=== PATIENT | female | born 1955 | race Caucasian/White ===

== ENCOUNTER 2016-06-30 12:39 | Outpatient (CLI) | payer MEDICAID | END 2016-06-30 12:40 | disposition home or self-care (01) | DX: E03.9 Hypothyroidism, unspecified (principal); Z86.2 Personal history of diseases of the blood and blood-forming organs and certain disorders involving the immune mechanism ==

== ENCOUNTER 2016-12-09 11:18 | Outpatient (CLI) | payer MEDICAID ==
--- NOTE | 2016-12-09 19:37 | XRAY Report ---
TWO VIEW CHEST: 12/09/2016 CLINICAL INDICATION: Cough. COMPARISON: 04/18/2016 Frontal and lateral views of the chest demonstrate a normal cardiac silhouette. The lungs remain skyler ar. No effusion or pneumothorax is present. IMPRESSION: NORMAL CHEST, UNCHANGED. JOB #: [id number] EXT JOB #:[id number]
== END 2016-12-09 11:19 | disposition home or self-care (01) ==
LOC: DI.S 11:18
PROVIDERS: ATTEND Nurse Practitioner Family
DX: R05 Cough (principal)
CPT/HCPCS: 71020

== ENCOUNTER 2017-03-30 12:01 | Outpatient (CLI) | payer MEDICAID ==
[2017-03-30 18:46] LABS: BASOPHILS # (AUTO) 0.1 10^3/uL (0.0-0.1); BASOPHILS % (AUTO) 1.7 %; EOSINOPHILS # (AUTO) 0.3 10^3/uL (0.0-0.7); EOSINOPHILS % (AUTO) 3.8 %; HCT - HEMATOCRIT 40.9 % (37.0-47.0); HGB - HEMOGLOBIN 13.3 g/dL (12.0-16.0); LYMPHOCYTES # (AUTO) 1.5 10^3/uL (1.5-3.5); LYMPHOCYTES % (AUTO) 19.3 %; MEAN CORPUSCULAR HEMOGLOBIN 27.4 pg (27.0-31.0); MEAN CORPUSCULAR HGB CONC 32.6 g/dL (32.0-36.0); MEAN CORPUSCULAR VOLUME 84.2 fL (81.0-99.0); MEAN PLATELET VOLUME 7.6 fL (7.9-10.8); MONOCYTES # (AUTO) 0.4 10^3/uL (0.0-1.0); MONOCYTES % (AUTO) 5.4 %; NEUTROPHILS # (AUTO) 5.5 10^3/uL (1.5-6.6); NEUTROPHILS % (AUTO) 69.8 %; NUCLEATED RED BLOOD CELLS AUTO 0.1 /100WBC; RED BLOOD COUNT 4.86 10^6/uL (4.20-5.40); RED CELL DISTRIBUTION WIDTH 14.7 % (12.0-15.0); UNCORRECTED WHITE BLOOD COUNT 7.8 x10^3/uL; WHITE BLOOD COUNT 7.8 x10^3/uL (4.8-10.8)
[2017-03-30 19:25] LABS: ALBUMIN/GLOBULIN RATIO 1.5 (1.0-2.2); BILIRUBIN,TOTAL 0.6 mg/dL (0.2-1.0); BUN - BLOOD UREA NITROGEN 17 mg/dL (6-20); CALCIUM 9.1 mg/dL (8.5-10.3); CARBON DIOXIDE - CO2 28 mmol/L (21-32); CHLORIDE 102 mmol/L (101-111); CHOL/HDL RATIO 3.5 (<4.4); CHOLESTEROL 165 mg/dL; CREATININE 0.7 mg/dL (0.4-1.0); GFR - MDRD 85 (>89); GLUCOSE 84 mg/dL (70-100); HDL CHOLESTEROL 47 mg/dL; LDL/HDL RATIO 2.1 (<4.4); POTASSIUM 3.5 mmol/L (3.5-5.0); SODIUM 138 mmol/L (135-145); TOTAL PROTEIN 7.2 g/dL (6.7-8.2); TRIGLYCERIDES 85 mg/dL; VLDL CHOLESTEROL 17 mg/dL
== END 2017-03-30 12:02 | disposition home or self-care (01) ==
LOC: LAB.S 12:01
PROVIDERS: ATTEND Nurse Practitioner Family
DX: I10 Essential (primary) hypertension (principal); Z13.220 Encounter for screening for lipoid disorders; Z01.84 Encounter for antibody response examination
CPT/HCPCS: 36415; 80053; 80061; 84443; 85025; 86803

== ENCOUNTER 2017-04-06 11:05 | Outpatient (CLI) | payer MEDICAID ==
--- NOTE | 2017-04-10 14:21 | XRAY Report ---
DATE OF SERVICE: 04/06/2017 TWO-VIEW RIGHT FOOT: 04/06/2017 CLINICAL INDICATION: Pain at right fourth metatarsophalangeal joint. FINDINGS: Frontal and lateral views of the right foot demonstrate no evidence of fracture or disloca tion. The joint spaces are unremarkable. No radiopaque foreign body is seen in the soft tissues. Plantar and posterior calcaneal spurring is incidentally noted. IMPRESSION: CALCANEAL SPURRING. NO EVIDENT ETIOLOGY FOR THE PATIENT'S PAIN AT THE FOURTH METATARSOP HALANGEAL JOINT. TD: 04/06/2017 16:51
== END 2017-04-06 11:06 | disposition home or self-care (01) ==
LOC: DI.S 11:05
PROVIDERS: ATTEND Family Medicine
DX: M77.41 Metatarsalgia, right foot (principal); M77.31 Calcaneal spur, right foot

== ENCOUNTER 2017-05-14 14:33 | Outpatient (CLI) | payer MEDICAID ==
--- NOTE | 2017-05-15 10:33 | XRAY Report ---
DATE OF SERVICE: 05/14/2017 THREE VIEW LEFT FOOT: 05/14/2017 CLINICAL INDICATION: Pain. FINDINGS: AP, lateral, and oblique views of the left foot demonstrate no evidence of fracture or dislocation. A small plantar calcaneal spur is present. No radiopaque foreign body is seen in the soft tissues. IMPRESSION: PLANTAR CALCANEAL SPURRING. TD: 05/15/2017 11:32
== END 2017-05-14 14:34 | disposition home or self-care (01) ==
LOC: DI.S 14:33
PROVIDERS: ATTEND Nurse Practitioner Family
DX: M77.32 Calcaneal spur, left foot (principal)

== ENCOUNTER 2017-05-28 16:18 | Outpatient (CLI) | payer MEDICAID ==
--- NOTE | 2017-05-29 11:56 | XRAY Report ---
THREE VIEW LEFT ANKLE: 05/28/2017 CLINICAL INDICATION: Injury. FINDINGS: AP, lateral, oblique views of the left ankle demonstrate no evidence of fracture or dislocation. Plantar and posterior calcaneal spurring is noted. No effusion is seen. No radiopaque foreign body is seen in the soft tissues. IMPRESSION: NO EVIDENCE OF FRACTURE. TD: 05/29/2017 11:55
== END 2017-05-28 16:19 | disposition home or self-care (01) ==
LOC: DI 16:18
PROVIDERS: ATTEND Podiatrist
DX: S99.912A Unspecified injury of left ankle, initial encounter (principal)

== ENCOUNTER 2017-05-30 12:17 | Outpatient (CLI) | payer MEDICAID ==
--- NOTE | 2017-05-30 20:20 | MRI Report ---
EXAM: RIGHT MIDFOOT MRI WITHOUT CONTRAST EXAM DATE: 05/30/2017 01:15 PM. CLINICAL HISTORY: Pain in the right forefoot near the fourth metatarsal for one year. COMPARISON: 04/06/2017 radiograph. TECHNIQUE: Multiplanar, multisequence T1-weighted and fluid-sensitive sequences of the midfoot withou t contrast. Other: None. FINDINGS: Bones: No fractures or subluxations. Mild reactive periarticular marrow edema is in the distal cuboid . No bone lesions. Articular Cartilage: Unremarkable. Ligaments: The visualized intertarsal, intermetatarsal, and tarsometatarsal ligaments are intact. Thi s includes the Lisfranc ligament. The visualized collateral ligaments are intact. Tendons: The flexor and extensor tendons are unremarkable. Musculature: No edema or fatty atrophy. Other: No effusions. The visualized portion of the tarsal tunnel is unremarkable. There is mild inter metatarsal bursitis in the third interspace. The subcutaneous tissues are unremarkable. IMPRESSION: Mild intermetatarsal bursitis between the distal third and fourth metatarsals near the site of pain. [facility] MUSCULOSKELETAL RADIOLOGY SECTION Referring Provider Line: [phone] SITE ID: [id number]
== END 2017-05-30 12:18 | disposition home or self-care (01) ==
LOC: DI 12:17
PROVIDERS: ATTEND Podiatrist
DX: M71.571 Other bursitis, not elsewhere classified, right ankle and foot (principal)

== ENCOUNTER 2017-08-13 11:25 | Outpatient (CLI) | payer MEDICAID ==
[2017-08-13 18:19] LABS: THYROID STIMULATING HORMONE 1.38 uIU/mL (0.34-5.60)
[2017-08-13 18:21] LABS: FREE T4 (FREE THYROXINE) 0.73 ng/dL (0.58-1.64)
== END 2017-08-13 11:26 | disposition home or self-care (01) ==
LOC: LAB.F 11:25
PROVIDERS: ATTEND Nurse Practitioner Family
DX: E03.9 Hypothyroidism, unspecified (principal)
CPT/HCPCS: 36415; 84439; 84443

== ENCOUNTER 2017-11-06 15:05 | Outpatient (CLI) | payer MEDICAID ==
--- NOTE | 2017-11-06 16:09 | XRAY Report ---
Procedure Date: 11/06/2017 Accession Number: [id number] / [id number] Procedure: XRS - Shoulder 2 View RT CPT Code: FULL RESULT: EXAM: Shoulder 2 View RT DATE: 11/06/2017 3:21 PM CLINICAL HISTORY: PAIN IN RIGHT SHOULDER COMPARISON: None. TECHNIQUE: 3 views. FINDINGS: This three-view series is limited by suboptimal positioning. Within these limitations no dislocation is identified. There is no fracture. The acromioclavicular and coracoclavicular intervals are within normal limits. Visualized soft tissues and lung parenchyma are unremarkable. IMPRESSION: Limited examination with no fracture or overt dislocation. If there is ongoing clinical concern for dislocation, repeat shoulder radiographs with ratio/true AP view and axial view could be obtained. [facility]
== END 2017-11-06 15:06 | disposition home or self-care (01) ==
LOC: DI.S 15:05
PROVIDERS: ATTEND Nurse Practitioner Family
DX: M25.511 Pain in right shoulder (principal)

== ENCOUNTER 2018-01-01 16:34 | Outpatient (CLI) | payer MEDICAID ==
[2018-01-01 17:34] LABS: THYROID STIMULATING HORMONE 0.45 uIU/mL (0.34-5.60)
[2018-01-01 17:36] LABS: FREE T4 (FREE THYROXINE) 1.14 ng/dL (0.58-1.64)
== END 2018-01-01 16:35 | disposition home or self-care (01) ==
LOC: LAB 16:34
PROVIDERS: ATTEND Internal Medicine
DX: E03.9 Hypothyroidism, unspecified (principal); R53.82 Chronic fatigue, unspecified; G47.10 Hypersomnia, unspecified; R63.5 Abnormal weight gain; G47.30 Sleep apnea, unspecified
CPT/HCPCS: 36415; 84439; 84443

== ENCOUNTER 2018-06-28 08:00 | Outpatient (CLI) | payer MEDICAID ==
[2018-06-28 17:54] LABS: BASOPHILS # (AUTO) 0.1 10^3/uL (0.0-0.1); EOSINOPHILS # (AUTO) 0.3 10^3/uL (0.0-0.7); EOSINOPHILS % (AUTO) 4.5 %; HGB - HEMOGLOBIN 13.3 g/dL (12.0-16.0); LYMPHOCYTES # (AUTO) 1.5 10^3/uL (1.5-3.5); LYMPHOCYTES % (AUTO) 21.7 %; MEAN CORPUSCULAR HEMOGLOBIN 27.6 pg (27.0-31.0); MEAN CORPUSCULAR HGB CONC 32.5 g/dL (32.0-36.0); MEAN CORPUSCULAR VOLUME 85.1 fL (81.0-99.0); MEAN PLATELET VOLUME 7.5 fL (7.9-10.8); MONOCYTES # (AUTO) 0.4 10^3/uL (0.0-1.0); MONOCYTES % (AUTO) 5.4 %; NEUTROPHILS # (AUTO) 4.5 10^3/uL (1.5-6.6); NEUTROPHILS % (AUTO) 66.4 %; PLT - PLATELET COUNT 416 10^3/uL (130-450); RED BLOOD COUNT 4.81 10^6/uL (4.20-5.40); RED CELL DISTRIBUTION WIDTH 14.8 % (12.0-15.0); WHITE BLOOD COUNT 6.7 x10^3/uL (4.8-10.8)
[2018-06-28 18:40] LABS: ALBUMIN/GLOBULIN RATIO 1.3 (1.0-2.2); ALKALINE PHOSPHATASE 46 IU/L (42-121); ALT ALANINE AMINOTRANSFERASE 18 IU/L (10-60); AST ASPARTATE AMINOTRANSFERASE 16 IU/L (10-42); BILIRUBIN,TOTAL 0.9 mg/dL (0.2-1.0); BUN - BLOOD UREA NITROGEN 20 mg/dL (6-20); CALCIUM 9.5 mg/dL (8.5-10.3); CARBON DIOXIDE - CO2 32 mmol/L (21-32); CHLORIDE 100 mmol/L (101-111); CHOL/HDL RATIO 3.3 (<4.4); CHOLESTEROL 159 mg/dL; CREATININE 0.8 mg/dL (0.4-1.0); GFR - MDRD 73 (>89); GLUCOSE 98 mg/dL (70-100); HDL CHOLESTEROL 48 mg/dL; LDL CHOLESTEROL,CALCULATED 96 mg/dL; SODIUM 140 mmol/L (135-145); TOTAL PROTEIN 7.1 g/dL (6.7-8.2); VLDL CHOLESTEROL 15 mg/dL
== END 2018-06-28 23:59 | disposition home or self-care (01) ==
LOC: LAB.S 08:00
PROVIDERS: ATTEND Nurse Practitioner Family
DX: Z82.3 Family history of stroke (principal); I10 Essential (primary) hypertension; Z13.220 Encounter for screening for lipoid disorders
CPT/HCPCS: 36415; 80053; 80061; 83721; 85025

== ENCOUNTER 2018-11-29 15:20 | Outpatient (CLI) | payer OTHER | END 2018-11-29 23:59 | LOC: LAB 15:20 | DX: Z53.9 Procedure and treatment not carried out, unspecified reason (principal) | CPT/HCPCS: 36415; 81599; 84550 ==

== ENCOUNTER 2018-11-30 15:20 | Outpatient (CLI) | payer MEDICAID, OTHER ==
--- NOTE | 2018-11-30 16:13 | Mammography Report ---
Reason: SCREENING MAMMO Procedure Date: 11/30/2018 Accession Number: [id number] / [id number] Procedure: VON - Screening Mammo w/Davey CPT Code: FULL RESULT: EXAM: Screening Mammo w/Davey DATE: 11/30/2018 4:04 PM CLINICAL HISTORY: Screening encounter. TECHNIQUE: (B) - Bilateral CC, laterally exaggerated CC, MLO views were obtained. COMPARISON: 05/17/2015 through 01/19/2012. PARENCHYMAL PATTERN: (A) - The breast(s) demonstrate(s) scattered fibroglandular densities. FINDINGS: There are no suspicious masses, calcifications, or areas of distortion. IMPRESSION: Negative examination. BI-RADS category 1. RECOMMENDATION: (ANNUAL) - Recommend routine annual screening mammography. BI-RADS CATEGORY: (1) - Negative. STANDARD QUALIFYING STATEMENTS: 1. This examination was not reviewed with the aid of Computer-Aided Detection (CAD). 2. A negative or benign imaging report should not preclude biopsy if clinically suspicious findings are present. 3. Dense breasts may obscure an underlying neoplasm. 4. This examination was reviewed with the aid of 3D breast imaging (tomosynthesis).
== END 2018-11-30 15:21 | disposition home or self-care (01) ==
LOC: DI 15:20
PROVIDERS: ATTEND Registered Nurse
DX: Z12.31 Encounter for screening mammogram for malignant neoplasm of breast (principal); R63.5 Abnormal weight gain; R22.33 Localized swelling, mass and lump, upper limb, bilateral
CPT/HCPCS: 36415; 77063; 77067; 81599; 84550

== ENCOUNTER 2019-05-13 13:27 | Outpatient (CLI) | payer BC, OTHER ==
[2019-05-13 18:42] LABS: ALBUMIN 4.4 g/dL (3.2-5.5); ALBUMIN/GLOBULIN RATIO 1.6 (1.0-2.2); BILIRUBIN,TOTAL 0.5 mg/dL (0.2-1.0); CALCIUM 9.1 mg/dL (8.5-10.3); CREATININE 0.8 mg/dL (0.4-1.0); TOTAL PROTEIN 7.1 g/dL (6.7-8.2)
[2019-05-13 18:58] LABS: TOTAL T3 1.04 ng/mL (0.87-1.78)
--- NOTE | 2019-05-14 08:59 | XRAY Report ---
Reason: PAIN IN RIGHT KNEE Procedure Date: 05/13/2019 Accession Number: [id number] / [id number] Procedure: XRS - Knee 3 View RT CPT Code: Final Report FULL RESULT: EXAM: RIGHT KNEE RADIOGRAPHY EXAM DATE: 05/13/2019 01:46 PM. CLINICAL HISTORY: Pain. COMPARISON: None. TECHNIQUE: 3 views. FINDINGS: Bones: No acute fracture is demonstrated. Joints: No dislocation or subluxation. Mild tricompartmental joint space narrowing is present. There is minimal spurring of the patellofemoral compartment. No significant joint effusion. Soft Tissues: Unremarkable. IMPRESSION: 1. No acute fracture or malalignment. 2. Mild tricompartmental DJD. [facility]
== END 2019-05-13 13:28 | disposition home or self-care (01) ==
LOC: DI.S 13:27
PROVIDERS: ATTEND Registered Nurse
DX: M17.11 Unilateral primary osteoarthritis, right knee (principal); I10 Essential (primary) hypertension; E03.9 Hypothyroidism, unspecified
CPT/HCPCS: 36415; 80053; 84443; 84480

== ENCOUNTER 2019-06-17 07:47 | Outpatient (CLI) | payer BC ==
--- NOTE | 2019-06-17 15:48 | MRI Report ---
Reason: RT KNEE PAIN Procedure Date: 06/17/2019 Accession Number: [id number] / [id number] Procedure: MRI - Knee RT W/O CPT Code: Final Report FULL RESULT: EXAM: RIGHT KNEE MRI WITHOUT CONTRAST EXAM DATE: 06/17/2019 09:44 AM. CLINICAL HISTORY: RT KNEE PAIN. COMPARISON: KNEE 3 VIEW RT 05/13/2019 1:54 PM. TECHNIQUE: Multiplanar, multisequence T1-weighted and fluid-sensitive sequences of the knee without contrast. Other: None. FINDINGS: Ligaments: The anterior cruciate, posterior cruciate, medial collateral, and lateral collateral ligament are normal. Patellofemoral compartment: There is diffuse full-thickness chondromalacia patella which involves the central and medial retropatellar surface with partial thickness chondromalacia of the lateral retropatellar surface. There is also diffuse chondromalacia of the central and medial femoral trochlea, much of which is full-thickness. Mild subchondral cyst formation and marrow edema underlies the patellofemoral chondromalacia and there is mild patellofemoral osteophyte formation. Patellofemoral alignment is anatomic. The distal quadriceps and patellar tendons are normal. The medial and lateral patellofemoral retinacula are normal. Medial compartment: There is a radially oriented tear through the midportion of the peripheral body of the medial meniscus best seen on series 501 image 6. This contacts both the superior and inferior articular surfaces. The remainder of the medial meniscus is intact. There is diffuse generalized chondromalacia of the weightbearing surface of the medial femoral condyle, portions of which are full thickness. Medial tibial plateau cartilage is preserved. Small medial compartment osteophytes and minimal subchondral cyst formation indicate osteoarthritis. Lateral compartment: The lateral meniscus is intact. Partial thickness chondromalacia of the central weightbearing surface of the lateral femoral condyle and lateral tibial plateau. Small marginal osteophytes indicate mild osteoarthritis. Soft tissues: No significant knee effusion. A small popliteal cyst is present. IMPRESSION: 1. Severe patellofemoral chondromalacia, most evident centrally and medially, with moderate patellofemoral osteoarthritis. 2. Radially oriented tear through the midportion of the peripheral body of the medial meniscus. Moderate generalized medial femoral condylar chondromalacia, portions of which are full thickness, with mild medial compartment osteoarthritis. 3. Mild lateral compartment chondromalacia with mild osteoarthritis. Intact lateral meniscus. [facility]
== END 2019-06-17 07:48 | disposition home or self-care (01) ==
LOC: DI 07:47
PROVIDERS: ATTEND Registered Nurse
DX: M94.261 Chondromalacia, right knee (principal); S83.241A Other tear of medial meniscus, current injury, right knee, initial encounter; M17.11 Unilateral primary osteoarthritis, right knee

== ENCOUNTER 2020-01-13 12:53 | Outpatient (CLI) | payer BC | END 2020-01-13 12:54 | disposition home or self-care (01) | LOC: COV 12:53 | PROVIDERS: ATTEND Ophthalmology | DX: Z01.818 Encounter for other preprocedural examination (principal); H25.812 Combined forms of age-related cataract, left eye; Z20.828 Contact with and (suspected) exposure to other viral communicable diseases ==

== ENCOUNTER 2020-01-30 08:00 | Outpatient (CLI) | payer BC | END 2020-01-30 23:59 | disposition home or self-care (01) | LOC: LAB 08:00 | PROVIDERS: ATTEND Ophthalmology | DX: Z01.818 Encounter for other preprocedural examination (principal); H25.812 Combined forms of age-related cataract, left eye; Z20.828 Contact with and (suspected) exposure to other viral communicable diseases ==

== ENCOUNTER 2020-02-02 09:44 | Day surgery (SDC) | payer BC ==
[~2020-02-02 09:44] MED LIST: KETOROLAC 0.45% OPHTH DROPS ONE; PHENYLEPHRINE 2.5% OPHTH 2 ML DROPS ONE; PROPARACAINE 0.5% OPHTH DROPS 15 ML ONE
[2020-02-02] MEDS ORDERED: LACTATED RINGERS 500 ML IV ONE ×2 (10:33→11:41)
--- NOTE | 2020-02-02 11:12 | ANESTHESIA ---
Pre-Anesthesia VS, & Labs - Diagnosis left eye senile combined cataract - Procedure left eye cataract extraction with IOL implant Vital Signs: Temp Pulse Resp BP Pulse Ox 36.5 C 62 20 152/81 H 97 02/02/20 10:36 02/02/20 10:36 02/02/20 10:36 02/02/20 10:36 02/02/20 10:36 Height: 5 ft 3 in Weight (kg): 97 kg Body Mass Index: 37.8 BMI Classification: Obese - NPO >8 hours - Is Patient ?: No Home Medications and Allergies Home Medications: Ambulatory Orders Levothyroxine [Synthroid] 125 mcg PO QDAC 02/01/20 Losartan Potassium 50 mg PO DAILY 02/01/20 Triamterene/Hydrochlorothiazid [Triamterene-Hctz 37.5-25 mg Cp] 1 each PO DAILY 02/01/20 Levothyroxine [Synthroid] 125 mcg PO QDAC 02/01/20 Losartan Potassium 50 mg PO DAILY 02/01/20 Triamterene/Hydrochlorothiazid [Triamterene-Hctz 37.5-25 mg Cp] 1 each PO DAILY 02/01/20 Allergies/Adverse Reactions: Allergies Allergy/AdvReac Type Severity Reaction Status Date / Time latex Allergy Itching Verified 02/01/20 16:09 Penicillins Allergy Itching Verified 02/01/20 16:09 Anes History & Medical History - Anesthetic History Anesthesia Complications: reports: No previous complications - Medical History Cardiovascular: reports: Hypertension, Other (occassional ectopy) Pulmonary: reports: Other (report history of small airway and enlarged tonsils) Gastrointestinal: reports: None Urinary: reports: None Neuro: reports: None Musculoskeletal: reports: Osteoarthritis Endocrine/Autoimmune: reports: HyPOthyroidism Blood Disorders: reports: None Skin: reports: Rosacea Smoking Status: Never smoker Psychosocial: reports: No issues indicated History of Cancer?: No - Surgical History General: Colonoscopy Gynecologic: section Exam General: Alert, Oriented x3, Cooperative, No acute distress Dental: WNL Mouth Openin Fingerbreadth Neck Mobility: Normal Mallampati classification: III Thyromental Distance: 4-6 cm Mental/Cognitive Status: Alert/Oriented X3, Normal for patient Plan Anesthesia Type: MAC Regional Block: Per Surgeon's request for Post Op pain control Consent for Procedure(s) Verified and Reviewed: Yes Code Status: Attempt Resuscitation ASA classification: 2-Mild systemic disease Is this case an emergency?: No
[2020-02-02] MEDS ORDERED: MIDAZOLAM 2 MG/2 ML VIAL IVP ONE (11:21)
[2020-02-02] MEDS ORDERED: BRIMONIDINE 0.2% OPHTH DROPS 5 ML OPTH ONE (11:21)
[2020-02-02] MEDS ORDERED: CHONDR SULF/HYALURONATE SYRINGE IO ONE (11:21)
[2020-02-02] MEDS ORDERED: fentaNYL 100 MCG/2 ML VIAL IVP ONE (11:21)
[2020-02-02] MEDS ORDERED: EPINEPHrine 1 MG/ML AMP IR ONE (11:21)
[2020-02-02] MEDS ORDERED: BSS/LIDOCAINE/EPINEPHRINE 1 ML SYRINGE IO ONE (11:22)
[2020-02-02] MEDS ORDERED: TIMOLOL 0.5% OPHTH DROPS OPTH ONE (11:22)
[2020-02-02] MEDS ORDERED: PROPARACAINE 0.5% OPHTH DROPS 15 ML EACHEYE ONE (11:23)
[2020-02-02] MEDS ORDERED: TRIAMCIN/MOXIFLOX OPHTHALMIC 0.6 ML VIAL IO ONE ×2 (11:23→13:27)
[2020-02-02] MEDS ORDERED: VANCOMYCIN OPHTHALMI 8MG/0.8ML 8 MG/0.8 ML SYRINGE IO ONE ×2 (11:24→13:27)
[2020-02-02 11:59] VITALS: BP 112/65
[2020-02-02] MEDS ORDERED: BSS/LIDOCAINE/EPINEPHRINE 1 ML SYRINGE ONE (13:27)
[2020-02-02] MEDS ORDERED: BRIMONIDINE 0.2% OPHTH DROPS 5 ML ONE (13:27)
[2020-02-02] MEDS ORDERED: EPINEPHrine 1 MG/ML AMP ONE (13:27)
[2020-02-02] MEDS ORDERED: TIMOLOL 0.5% OPHTH DROPS ONE (13:27)
--- NOTE | 2020-02-02 13:52 | ANESTHESIA POST OP EVALUATION ---
Anesthesia Post Eval - Post Anesthesia Eval Vitals: Last Vital Signs Temp 36.3 C L 02/02/20 11:41 Pulse 73 02/02/20 11:57 Resp 23 02/02/20 11:57 BP 112/65 02/02/20 11:57 Pulse Ox 94 02/02/20 11:57 CV Function Including HR & BP: positive: Stable Pain Control: positive: Satisfactory Nausea & Vomiting: positive: Negative Mental Status: positive: Baseline Respiratory Status: Airway Patent Hydration Status: Satisfactory Anesthesia Complications: positive: None
--- NOTE | 2020-02-02 16:18 | OPERATIVE REPORT ---
DATE OF SERVICE: 02/02/2020 Physician: Flavio Mcmullen MD PREOPERATIVE DIAGNOSIS: Visually significant cataract, left eye. This was her first cataract surgery. POSTOPERATIVE DIAGNOSIS: Visually significant cataract, left eye. This was her first cataract surgery. PROCEDURE: Phacoemulsification with posterior chamber intraocular lens implant, left eye. SURGEON: Flavio Mcmullen MD ANESTHESIA: Monitored anesthesia care. COMPLICATIONS: None. OPERATIVE INDICATIONS: This is a 64-year-old woman with progressive vision loss in the left eye due to 1-2+ nuclear sclerotic and 2+ cortical cataract. Best corrected visual acuity was 20/50, with glare to hand motion vision in the left eye. Indications for surgery are overall decrease in vision, difficulty seeing words on a computer screen, difficulty reading, difficulty seeing words, closed caption or game scores on TV, difficulty seeing street signs, difficulty driving in low light or at night, difficulty driving at night because of headlights from other vehicles, and difficulty with glare or bright lights in any situation. She was consented at length concerning risks and benefits of cataract surgery, after which she expressed a desire to proceed with surgery. OPERATIVE PROCEDURE: The patient's cornea was premarked in the PACU to yuriy an axis of 077 while sitting upright. Patient was taken to OR #3 and placed under monitored anesthesia care. A surgical timeout was conducted confirming correct patient, correct procedure, and correct surgical site. Prior to coming into OR in the PAC, the cornea was marked with a Osmin corneal marker for an axis of 077 as an alignment tool once the toric intraocular lens was inserted into the eye. She was given topical anesthesia, and prepped and draped in the usual sterile fashion. The eye was entered at the 6 and 3 o'clock positions. Intracameral Shugarcaine was injected into the anterior chamber, followed by Viscoat. A continuous-tear curvilinear capsulorrhexis was performed. The nucleus was hydrodissected and phacoemulsified. The cortex was evacuated using automated infusion and aspiration. Provisc was injected in the capsular bag, and a 9.0 diopter toric intraocular lens was inserted in the bag and rotated to axis [address] previously in the PACU. Infusion and aspiration was used to evacuate the viscoelastic materials. The eye was inflated to physiologic pressure using balanced salt solution and found to be watertight. The toric IOL was verified to still be at axis 077. Approximately 0.25 mL of a mixture of triamcinolone and moxifloxacin was injected transsclerally into the vitreous in the inferotemporal quadrant. An additional 0.55 mL of a mixture of triamcinolone, moxifloxacin and vancomycin was injected subconjunctivally in the superior quadrant for infection and inflammation prophylaxis. Wound integrity was checked with Weck-Mely sponges and the IOL was again verified to be on axis 077. The patient was taken from the Operating Room in good condition and given postoperative instructions. TD: 02/02/2020 11:52 MTDDaryl
== END 2020-02-02 09:45 | disposition home or self-care (01) ==
LOC: SDS 09:44
PROVIDERS: ATTEND Ophthalmology
DX: H25.812 Combined forms of age-related cataract, left eye (principal); I10 Essential (primary) hypertension; E03.9 Hypothyroidism, unspecified
CPT/HCPCS: 66984; A9270; J3490; J7120; V2632

== ENCOUNTER 2020-03-23 15:59 | Outpatient (CLI) | payer BC | END 2020-03-23 16:00 | disposition home or self-care (01) | LOC: COV 15:59 | PROVIDERS: ATTEND Ophthalmology | DX: Z01.812 Encounter for preprocedural laboratory examination (principal); H25.811 Combined forms of age-related cataract, right eye; Z20.828 Contact with and (suspected) exposure to other viral communicable diseases ==

== ENCOUNTER 2020-03-29 10:10 | Day surgery (SDC) | payer BC ==
[2020-03-29] MEDS ORDERED: PROPARACAINE 0.5% OPHTH DROPS 15 ML EACHEYE ONE (10:26)
[2020-03-29] MEDS ORDERED: BRIMONIDINE 0.2% OPHTH DROPS 5 ML OPTH ONE (10:26)
[2020-03-29] MEDS ORDERED: EPINEPHrine 1 MG/ML AMP IR ONE (10:26)
[2020-03-29] MEDS ORDERED: VANCOMYCIN OPHTHALMI 8MG/0.8ML 8 MG/0.8 ML SYRINGE IO ONE ×2 (10:26→11:29)
[2020-03-29] MEDS ORDERED: BSS/LIDOCAINE/EPINEPHRINE 1 ML SYRINGE IO ONE (10:26)
[2020-03-29] MEDS ORDERED: CHONDR SULF/HYALURONATE SYRINGE IO ONE (10:26)
[2020-03-29] MEDS ORDERED: TRIAMCIN/MOXIFLOX OPHTHALMIC 0.6 ML VIAL IO ONE ×2 (10:26→11:29)
[2020-03-29] MEDS ORDERED: TIMOLOL 0.5% OPHTH DROPS OPTH ONE (10:26)
--- NOTE | 2020-03-29 11:05 | ANESTHESIA ---
Pre-Anesthesia VS, & Labs - Diagnosis Right eye senile combined cataract - Procedure right eye cataract extraction with IOL Vital Signs: Temp Pulse Resp BP Pulse Ox 36.2 C L 74 18 142/95 H 99 03/29/20 10:52 03/29/20 10:52 03/29/20 10:52 03/29/20 10:52 03/29/20 10:52 Height: 5 ft 3 in Weight (kg): 95.6 kg Body Mass Index: 37.3 BMI Classification: Obese - NPO >8 hours - Is Patient ?: No Home Medications and Allergies Levothyroxine [Synthroid] 125 mcg PO QDAC 02/01/20 Losartan Potassium 50 mg PO DAILY 02/01/20 Triamterene/Hydrochlorothiazid [Triamterene-Hctz 37.5-25 mg Cp] 1 each PO DAILY 02/01/20 Allergies/Adverse Reactions: Allergies Allergy/AdvReac Type Severity Reaction Status Date / Time latex Allergy Itching Verified 02/01/20 16:09 Penicillins Allergy Itching Verified 02/01/20 16:09 Anes History & Medical History - Anesthetic History Anesthesia Complications: reports: No previous complications - Medical History Cardiovascular: reports: Hypertension Pulmonary: reports: Other (reports small airway and large tonsils) Gastrointestinal: reports: None Urinary: reports: None Neuro: reports: None Musculoskeletal: reports: Osteoarthritis Endocrine/Autoimmune: reports: HyPOthyroidism Blood Disorders: reports: None Skin: reports: None Smoking Status: Never smoker Psychosocial: reports: No issues indicated History of Cancer?: No - Surgical History General: Colonoscopy Gynecologic: section Exam General: Alert, Oriented x3, Cooperative, No acute distress Dental: WNL Mouth Openin Fingerbreadth Neck Mobility: Normal Mallampati classification: III Thyromental Distance: 4-6 cm Mental/Cognitive Status: Alert/Oriented X3, Normal for patient Plan Anesthesia Type: MAC Consent for Procedure(s) Verified and Reviewed: Yes Code Status: Attempt Resuscitation ASA classification: 2-Mild systemic disease Is this case an emergency?: No
[2020-03-29] MEDS ORDERED: LACTATED RINGERS 500 ML IV ONE (11:19)
[2020-03-29] MEDS ORDERED: MIDAZOLAM 2 MG/2 ML VIAL IVP ONE (11:20)
[2020-03-29] MEDS ORDERED: fentaNYL 100 MCG/2 ML VIAL IVP ONE (11:20)
[2020-03-29] MEDS ORDERED: EPINEPHrine 1 MG/ML AMP ONE (11:29)
[2020-03-29] MEDS ORDERED: TIMOLOL 0.5% OPHTH DROPS ONE (11:29)
[2020-03-29] MEDS ORDERED: BRIMONIDINE 0.2% OPHTH DROPS 5 ML ONE (11:29)
[2020-03-29] MEDS ORDERED: BSS/LIDOCAINE/EPINEPHRINE 1 ML SYRINGE ONE (11:29)
[2020-03-29] MEDS ORDERED: LACTATED RINGERS 400 ML IV ONE (11:39)
[2020-03-29 11:59] VITALS: BP 114/65
--- NOTE | 2020-03-29 12:30 | ANESTHESIA POST OP EVALUATION ---
Anesthesia Post Eval - Post Anesthesia Eval Vitals: Last Vital Signs Temp 36.3 C L 03/29/20 11:58 Pulse 79 03/29/20 11:58 Resp 16 03/29/20 11:58 BP 114/65 03/29/20 11:58 Pulse Ox 99 03/29/20 11:58 CV Function Including HR & BP: positive: Stable Pain Control: positive: Satisfactory Nausea & Vomiting: positive: Negative Mental Status: positive: Baseline Respiratory Status: Airway Patent Hydration Status: Satisfactory Anesthesia Complications: positive: None
--- NOTE | 2020-03-29 13:37 | OPERATIVE REPORT ---
DATE OF SERVICE: 03/29/2020 Physician: Flavio Mcmullen MD PREOPERATIVE DIAGNOSIS: Visually significant cataract, right eye. Cataract surgery was performed on the left eye on 02/02/2020. Of note, a few days after her cataract surgery in the left eye she experienced a retinal detachment and has since had retinal detachment repair by [facility]. They also performed prophylactic retinal laser in the peripheral retina of the right eye. They cleared her to go ahead with cataract surgery of the right eye and will be following up with her in about 1 month. POSTOPERATIVE DIAGNOSIS: Visually significant cataract, right eye. Cataract surgery was performed on the left eye on 02/02/2020. Of note, a few days after her cataract surgery in the left eye she experienced a retinal detachment and has since had retinal detachment repair by [facility]. They also performed prophylactic retinal laser in the peripheral retina of the right eye. They cleared her to go ahead with cataract surgery of the right eye and will be following up with her in about 1 month. PROCEDURE PERFORMED: Phacoemulsification with posterior chamber intraocular lens implant, right eye. SURGEON: Flavio Mcmullen MD ANESTHESIA: Monitored anesthesia care. COMPLICATIONS: None. OPERATIVE INDICATIONS: This is a 64-year-old woman with progressive vision loss in the right eye due to 1-2+ nuclear sclerotic and 1-2+ cortical cataract. Best corrected visual acuity was 20/30, with glare to hand motion vision in the right eye. Indications for surgery are overall decrease in vision, difficulty seeing street signs, difficulty driving in low light or at night, difficulty driving at night because of headlights from other vehicles, difficulty with glare or bright lights in any situation, and that there is a very big difference between the finished left eye, and the right eye is causing headaches and dizziness. She is a high myope. She was consented at length concerning risks and benefits of cataract surgery, after which she expressed a desire to proceed with surgery. OPERATIVE PROCEDURE: The patient was taken into OR #3 and placed under monitored anesthesia care. A surgical timeout was conducted confirming correct patient, correct procedure, and correct surgical site. She was given topical anesthesia, and prepped and draped in the usual sterile fashion. The eye was entered at the 12 and 9 o'clock positions. Intracameral Shugarcaine was injected into the anterior chamber, followed by Viscoat. A continuous-tear curvilinear capsulorrhexis was performed. The nucleus was hydrodissected and phacoemulsified. The cortex was evacuated using automated infusion and aspiration. Provisc was injected in the capsular bag, and a 7.5 diopter intraocular toric lens was inserted into the bag and rotated to axis 101, which had been previously marked on the cornea with a Osmin marker. Infusion and aspiration was used to evacuate the viscoelastic materials. The eye was inflated to physiologic pressure using balanced salt solution and found to be watertight. The IOL was then verified to still be at the proper axis. Approximately 0.25 mL of a mixture of triamcinolone and moxifloxacin was injected transsclerally into the vitreous in inferotemporal quadrant. An additional 0.55 mL of a mixture of triamcinolone, moxifloxacin, and vancomycin was injected subconjunctivally in the superior quadrant for infection and inflammation prophylaxis. The IOL was again verified to be at the proper axis of 101. Wound integrity was checked with Weck-Mely sponges. The patient was taken from the operating room in good condition and given postoperative instructions. TD: 03/29/2020 11:58 YOU
== END 2020-03-29 10:11 | disposition home or self-care (01) ==
LOC: SDS 10:10
PROVIDERS: ATTEND Ophthalmology
DX: H25.811 Combined forms of age-related cataract, right eye (principal); I10 Essential (primary) hypertension; Z98.42 Cataract extraction status, left eye; Z98.890 Other specified postprocedural states; E03.9 Hypothyroidism, unspecified; E66.9 Obesity, unspecified; Z68.37 Body mass index [BMI] 37.0-37.9, adult
CPT/HCPCS: 66984; A9270; J3490; J7120; V2632

== ENCOUNTER 2020-04-18 12:49 | Outpatient (CLI) | payer BC ==
[2020-04-18 19:49] LABS: BASOPHILS # (AUTO) 0.1 10^3/uL (0.0-0.1); BASOPHILS % (AUTO) 1.7 %; EOSINOPHILS # (AUTO) 0.4 10^3/uL (0.0-0.7); EOSINOPHILS % (AUTO) 4.7 %; HCT - HEMATOCRIT 44.1 % (37.0-47.0); HGB - HEMOGLOBIN 13.6 g/dL (12.0-16.0); LYMPHOCYTES # (AUTO) 1.5 10^3/uL (1.5-3.5); LYMPHOCYTES % (AUTO) 18.8 %; MEAN CORPUSCULAR HEMOGLOBIN 28.2 pg (27.0-31.0); MEAN CORPUSCULAR HGB CONC 30.8 g/dL (32.0-36.0); MEAN CORPUSCULAR VOLUME 91.5 fL (81.0-99.0); MEAN PLATELET VOLUME 9.5 fL (7.9-10.8); MONOCYTES # (AUTO) 0.4 10^3/uL (0.0-1.0); MONOCYTES % (AUTO) 5.5 %; NEUTROPHILS # (AUTO) 5.4 10^3/uL (1.5-6.6); NEUTROPHILS % (AUTO) 68.8 %; PLT - PLATELET COUNT 381 10^3/uL (130-450); RED BLOOD COUNT 4.82 10^6/uL (4.20-5.40); RED CELL DISTRIBUTION WIDTH 14.5 % (12.0-15.0); WHITE BLOOD COUNT 7.8 x10^3/uL (4.8-10.8)
[2020-04-18 20:18] LABS: ALBUMIN 4.1 g/dL (3.2-5.5); ALBUMIN/GLOBULIN RATIO 1.4 (1.0-2.2); ALKALINE PHOSPHATASE 43 IU/L (42-121); ALT ALANINE AMINOTRANSFERASE 27 IU/L (10-60); AST ASPARTATE AMINOTRANSFERASE 20 IU/L (10-42); BILIRUBIN,TOTAL 0.7 mg/dL (0.2-1.0); BUN - BLOOD UREA NITROGEN 19 mg/dL (6-20); CALCIUM 9.2 mg/dL (8.5-10.3); CARBON DIOXIDE - CO2 31 mmol/L (21-32); CHLORIDE 100 mmol/L (101-111); CHOLESTEROL 178 mg/dL; CREATININE 0.7 mg/dL (0.4-1.0); GFR - MDRD 85 (>89); GLUCOSE 100 mg/dL (70-100); HDL CHOLESTEROL 45 mg/dL; LDL CHOLESTEROL,CALCULATED 112 mg/dL; LDL/HDL RATIO 2.5 (<4.4); POTASSIUM 3.8 mmol/L (3.5-5.0); SODIUM 141 mmol/L (135-145); THYROID STIMULATING HORMONE 0.83 uIU/mL (0.34-5.60); TRIGLYCERIDES 104 mg/dL; URIC ACID 6.9 mg/dL (2.6-7.2); VLDL CHOLESTEROL 21 mg/dL
[2020-04-18 20:19] LABS: FREE T3 3.33 pg/mL (2.5-3.9)
[2020-04-18 20:20] LABS: FREE T4 (FREE THYROXINE) 1.16 ng/dL (0.58-1.64)
[2020-04-18 20:43] LABS: RHEUMATOID FACTOR NEGATIVE (Negative)
[2020-04-18 22:05] LABS: ESTIMATED AVERAGE GLUCOSE 126 mg/dL (70-100)
[2020-04-21 12:06] LABS: ANA SCREEN NEGATIVE (NEGATIVE)
== END 2020-04-18 12:50 | disposition home or self-care (01) ==
LOC: LAB.S 12:49
PROVIDERS: ATTEND Nurse Practitioner
DX: E66.01 Morbid (severe) obesity due to excess calories (principal); E88.81 Metabolic syndrome and other insulin resistance; M15.9 Polyosteoarthritis, unspecified; K21.9 Gastro-esophageal reflux disease without esophagitis; J45.909 Unspecified asthma, uncomplicated; I10 Essential (primary) hypertension; E03.9 Hypothyroidism, unspecified; M25.50 Pain in unspecified joint
CPT/HCPCS: 36415; 80053; 80061; 83036; 83721; 84439; 84443; 84481; 84550; 85025; 85651; 86038; 86140; 86430

== ENCOUNTER 2020-06-01 15:29 | Outpatient (CLI) | payer BC ==
--- NOTE | 2020-06-04 13:18 | Mammography Report ---
BILATERAL DIGITAL SCREENING MAMMOGRAM 3D/2D: 06/01/2020 CLINICAL: Routine screening. Comparison is made to exams dated: 11/30/2018 mammogram, 05/17/2015 mammogram, and 03/01/2014 mammogra m - [facility]. There are scattered fibroglandular elements in both breasts. No significant masses, calcifications, or other findings are seen in either breast. There has been no significant interval change. IMPRESSION: NEGATIVE There is no mammographic evidence of malignancy. A 1 year screening mammogram is recommended. This exam was interpreted at Station ID: [id number]. NOTE: For mammograms, a report in lay terms will be sent to the patient. Approximately 15% of breast malignancies will not be visualized mammographically. In the management of a palpable breast mass, a negative mammogram must not discourage biopsy of a clinically suspicious lesion. Electronically Signed By: Doron Ritchie M.D. slc/penrad:06/01/2020 17:55:14 ACR BI-RADS Category 1: Negative 3341F PARENCHYMAL PATTERN: (A) - The breast(s) demonstrate(s) scattered fibroglandular densities. BI-RADS CATEGORY: (1) - 1 RECOMMENDATION: (ANNUAL) - Recommend routine annual screening mammography. [id number] 1 year screening LATERALITY: (B)
== END 2020-06-01 15:30 | disposition home or self-care (01) ==
LOC: DI 15:29
PROVIDERS: ATTEND Nurse Practitioner
DX: Z12.31 Encounter for screening mammogram for malignant neoplasm of breast (principal)

== ENCOUNTER 2020-08-05 07:00 | Outpatient (CLI) | payer BC ==
--- NOTE | 2020-08-05 14:43 | XRAY Report ---
PROCEDURE: Knee 3 View LT INDICATIONS: LEFT KNEE PAIN, ACUTE TECHNIQUE: 3 views of the left knee(s) were acquired. COMPARISON: Knee radiographs dated 02/25/2016 FINDINGS: Bones: There is no acute fracture. Corticated calcific fragment along the fibular head is noted on th e lateral view. There is mild tricompartment osteophytosis worse within the medial and patellofemoral compartments. Soft tissues: No joint effusion. No suspicious soft tissue calcifications. IMPRESSION: No acute osseous abnormality. Mild tricompartment osteoarthritis. Corticated calcific fragment along the fibular head may represent sequela of remote avulsion fracture . This injury may be seen with internal derangement. Recommend correlation with knee instability. Reviewed by: Myles Vieyra DO on 08/05/2020 1:42 PM RENEE Approved by: Myles Vieyra DO on 08/05/2020 1:42 PM RENEE Station ID: [id number]
== END 2020-08-05 23:59 | disposition home or self-care (01) ==
LOC: DI.S 07:00
PROVIDERS: ATTEND Physician Assistant
DX: M17.12 Unilateral primary osteoarthritis, left knee (principal); M25.862 Other specified joint disorders, left knee

== ENCOUNTER 2021-03-26 10:59 | Outpatient (CLI) | payer BC ==
--- NOTE | 2021-03-26 11:56 | DEXA Report ---
PROCEDURE: Dexa Spine and/or Hip INDICATIONS: POST MENOPAUSAL TECHNIQUE: Dual energy x-ray absorptiometry (DXA) was performed on a [employer] System. Regions measur ed are the AP Spine, femoral neck, and if needed forearm. COMPARISON: None. FINDINGS: Lumbar Spine: Bone Mineral Density 1.106 cm g/cm/cm,T score -0.6, normal Left Hip: Bone Mineral Density 0.984 g/cm/cm,T score -0.2, normal Left Femoral Neck: Bone Mineral Density 0.881 g/cm/cm, T score -1.1, minimal osteopenia (T score greater or equal to -1.0: NORMAL) (T score from -1.1 to -2.4: OSTEOPENIA) (T score less than or equal to -2.5 to: OSTEOPOROSIS) Impression: Minimal osteopenia within the left femoral neck. Patients with diagnosis of osteoporosis or osteopenia should have regular bone mineral density assess ment. For those eligible for Medicare, routine testing is allowed once every 2 years. Testing frequ ency can be increased for patients who have rapidly progressing disease or for those who are receivin g medical therapy to restore bone mass. Reviewed by: Shalonda Mack MD on 03/26/2021 11:55 AM PST Approved by: Shalonda Mack MD on 03/26/2021 11:55 AM PST Station ID: [id number]
== END 2021-03-26 11:00 | disposition home or self-care (01) ==
LOC: DI 10:59
PROVIDERS: ATTEND Registered Nurse
DX: Z78.0 Asymptomatic menopausal state (principal); M85.88 Other specified disorders of bone density and structure, other site

== ENCOUNTER 2021-04-05 11:33 | Outpatient (CLI) | payer BC ==
[2021-04-05 15:12] LABS: BASOPHILS # (AUTO) 0.1 10^3/uL (0.0-0.1); BASOPHILS % (AUTO) 1.8 %; EOSINOPHILS # (AUTO) 0.3 10^3/uL (0.0-0.7); EOSINOPHILS % (AUTO) 4.4 %; HCT - HEMATOCRIT 42.8 % (37.0-47.0); HGB - HEMOGLOBIN 13.9 g/dL (12.0-16.0); LYMPHOCYTES # (AUTO) 1.4 10^3/uL (1.5-3.5); LYMPHOCYTES % (AUTO) 19.5 %; MEAN CORPUSCULAR HEMOGLOBIN 29.1 pg (27.0-31.0); MEAN CORPUSCULAR HGB CONC 32.5 g/dL (32.0-36.0); MEAN CORPUSCULAR VOLUME 89.5 fL (81.0-99.0); MEAN PLATELET VOLUME 9.4 fL (7.9-10.8); MONOCYTES # (AUTO) 0.5 10^3/uL (0.0-1.0); MONOCYTES % (AUTO) 6.4 %; NEUTROPHILS # (AUTO) 4.8 10^3/uL (1.5-6.6); NEUTROPHILS % (AUTO) 67.8 %; PLT - PLATELET COUNT 356 10^3/uL (130-450); RED BLOOD COUNT 4.78 10^6/uL (4.20-5.40); RED CELL DISTRIBUTION WIDTH 13.8 % (12.0-15.0); WHITE BLOOD COUNT 7.1 x10^3/uL (4.8-10.8)
[2021-04-05 15:46] LABS: ALBUMIN 4.3 g/dL (3.2-5.5); ALBUMIN/GLOBULIN RATIO 1.5 (1.0-2.2); ALKALINE PHOSPHATASE 37 IU/L (42-121); ALT ALANINE AMINOTRANSFERASE 17 IU/L (10-60); AST ASPARTATE AMINOTRANSFERASE 14 IU/L (10-42); BILIRUBIN,TOTAL 0.7 mg/dL (0.2-1.0); BUN - BLOOD UREA NITROGEN 19 mg/dL (6-20); CALCIUM 9.2 mg/dL (8.5-10.3); CARBON DIOXIDE - CO2 31 mmol/L (21-32); CHLORIDE 100 mmol/L (101-111); CHOL/HDL RATIO 3.5 (<4.4); CHOLESTEROL 177 mg/dL; CREATININE 0.7 mg/dL (0.4-1.0); GFR - MDRD 84 (>89); GLUCOSE 108 mg/dL (70-100); HDL CHOLESTEROL 51 mg/dL; LDL CHOLESTEROL,CALCULATED 113 mg/dL; LDL/HDL RATIO 2.2 (<4.4); POTASSIUM 3.7 mmol/L (3.5-5.0); SODIUM 140 mmol/L (135-145); T4 (THYROXINE) 10.11 ug/dL (6.09-12.23); TOTAL PROTEIN 7.2 g/dL (6.7-8.2); TRIGLYCERIDES 67 mg/dL; VLDL CHOLESTEROL 13 mg/dL
[2021-04-05 15:50] LABS: THYROID STIMULATING HORMONE 0.29 uIU/mL (0.34-5.60)
== END 2021-04-05 11:34 | disposition home or self-care (01) ==
LOC: LAB.S 11:33
PROVIDERS: ATTEND Registered Nurse
DX: J45.909 Unspecified asthma, uncomplicated (principal); I10 Essential (primary) hypertension; E03.9 Hypothyroidism, unspecified; F41.9 Anxiety disorder, unspecified; F32.A Depression, unspecified; R53.82 Chronic fatigue, unspecified
CPT/HCPCS: 36415; 80053; 80061; 82306; 82607; 83721; 84436; 84443; 84480; 85025